=== PATIENT | female | born 1940 | race Caucasian/White ===

== ENCOUNTER → 2017-10-07 12:23 | Outpatient (CLI) | payer MEDICARE, BC ==
[2014-10-23 11:01] VITALS: BMI 29.1
[~2017-10-07 12:23] MED LIST: ACETAMINOPHEN500 M1 PO; ATIVAN1 MG PO; BAYER CHEWABLE81 MG PO; CARDIZEM CD360 MG PO; FISH OIL 1,0001 CA1 PO; IBUPROFEN200 MG PO; NAPROSYN500 MG PO; ROBAXIN500 MG PO; ZOCOR20 MG PO
== END | disposition home or self-care (01) ==
LOC: D.US 12:23
DX: M79.604 Pain in right leg (principal)

== ENCOUNTER → 2017-11-12 08:25 | Outpatient (CLI) | payer MEDICARE, BC ==
[2014-10-23 11:01] VITALS: BMI 29.1
== END | disposition home or self-care (01) ==
LOC: D.CT 08:25
DX: M79.605 Pain in left leg (principal); M79.604 Pain in right leg

== ENCOUNTER 2019-05-04 05:50 | Day surgery (SDC) | payer MEDICARE, BC ==
[2019-05-03 11:53] LABS: BASOPHILS 0.4 % (0-2); EOSINOPHILS 2.5 % (0-7); HEMATOCRIT 41.8 % (36.0-48.0); HEMOGLOBIN 13.3 g/dL (12-16); IMMATURE GRANULOCYTES 0.2 % (0-5); MCH 29.3 pg (26.0-34.0); MCHC 31.8 g/dL (31.0-37.0); MCV 92.1 fL (80.0-100.0); MEAN PLATELET VOLUME 9.4 fL (7.4-10.4); MONOCYTES 7.7 % (2-11); NEUTROPHILS 62.2 % (40-80); PLATELET COUNT 280 10x3/uL (130-400); RBC 4.54 10x6/uL (4.00-5.40); RDW 14.3 % (11.5-14.5); WBC 8.4 10x3/uL (4.8-10.8)
[2019-05-03 12:00] LABS: ANION GAP 13.5 mmol/L (8-16); CALCIUM 9.4 mg/dL (8.5-10.1); CARBON DIOXIDE 27.6 mmol/L (21.0-32.0); CREATININE - SERUM 1.3 mg/dL (0.6-1.3); POTASSIUM - SERUM 5.1 mmol/L (3.5-5.1)
[2019-05-03 12:11] LABS: APTT 32.1 SECONDS (22.8-39.4); INR 1.03 (0.85-1.17)
[~2019-05-04] VITALS: Ht 167.6 cm; Wt 78.0 kg
[~2019-05-04 05:50] MED LIST changes: +ALDACTONE25 MG PO; +CARDIZEM CD180 MG PO; -CARDIZEM CD360 MG PO; +COZAAR100 MG PO; +LIDODERM 5 %1 PATCH TRANSDERM; +NEURONTIN 300300 MG PO; +OMEPRAZOLE20 M1 PO; +VITAMIN D5000 UNIT PO; +ZOCOR10 MG PO; -ZOCOR20 MG PO; +ZOLOFT50 MG PO
[2019-05-04] MEDS ORDERED: ACETAMINOPHEN325 MG PO (07:27)
[2019-05-04] MEDS ORDERED: ATIVAN1 MG PO (07:27)
[2019-05-04 07:38] VITALS: BP 143/67; Ht 167.6 cm; Wt 78.0 kg
[2019-05-04] MEDS ORDERED: MEPERIDINE HCL50 MG PO (08:57)
--- NOTE | 2019-05-04 09:34 | NUR ---
0925-REC'D FROM RR. AWAKE AND ALERT,VSS,DENIES PAIN. STERI STRIPS TO 4 AREAS TO ABD,ALL CDI. TOLERATING ICE WATER.AWAITING ON TRAYS TO SERVE.
--- NOTE | 2019-05-04 09:56 | NUR ---
0955-FULL LIQUID TRAY TO ROOM.DRESSINGS CDI. RATES PAIN TOLERABLE AT 2/10. NO NAUSEA OR VOMITING,VSS. CL IN EASY REACH.FAMILY MEMBER AT BEDSIDE.
--- NOTE | 2019-05-04 11:01 | NUR ---
1045 IV REMOVED AND INSTRUCTIONS GIVEN.
[2019-05-05] MEDS ORDERED: OXYCODONE HCL5 M1 PO (13:27)
== END 2019-05-04 11:00 | disposition home or self-care (01) ==
LOC: D.OPS 05:50 → D.PAN 08:00 → D.OPS 11:00
PROVIDERS: Anesthesiology; ATTEND Surgery
DX: K82.8 Other specified diseases of gallbladder (principal); I10 Essential (primary) hypertension; K57.90 Diverticulosis of intestine, part unspecified, without perforation or abscess without bleeding; E78.2 Mixed hyperlipidemia

== ENCOUNTER → 2019-06-24 19:45 | Outpatient (CLI) | payer MEDICARE, BC ==
[2019-05-04 07:38] VITALS: BMI 27.8
[~2019-06-24 19:45] MED LIST changes: +ACETAMINOPHEN325 MG PO; +MEPERIDINE HCL50 MG PO; +OXYCODONE HCL5 M1 PO
== END | disposition home or self-care (01) ==
LOC: D.LABREF 19:45
PROVIDERS: ATTEND Urology
DX: R82.90 Unspecified abnormal findings in urine (principal)

== ENCOUNTER → 2020-05-08 19:38 | Outpatient (CLI) | payer MEDICARE, BC ==
[2019-05-04 07:38] VITALS: BMI 27.8
== END | disposition home or self-care (01) ==
LOC: D.LABREF 19:38
PROVIDERS: ATTEND Orthopaedic Surgery
DX: M16.12 Unilateral primary osteoarthritis, left hip (principal)